=== PATIENT | male | born 1960 | race Caucasian/White ===

== ENCOUNTER 2017-11-05 00:41 | Emergency (ER) | payer OTHER ==
[~2017-11-05] VITALS: Ht 185.4 cm; Wt 97.5 kg
[~2017-11-05 00:41] MED LIST: AMIT10 PO; BACL20 PO; CARV6.25 PO; CEPH500 PO; CIPR500 PO; CLIN300 PO; CYCL10 PO; DIAZ5 PO; DOCU100 PO; FLUO10 PO; FURO20 PO; GABA400 PO; HYDACE5 PO; IBUP600 PO; KETO10 PO; LACT10SY PO; LISI5 PO; LOVA20 PO; MORP15ER PO; OXYACE5T PO; OXYC10TA19 PO; POLY17UD PO; PRAV20 PO; TRAACE PO; TRAM50 PO; WARF6 PO; ZOLP5 PO
[2017-11-05] MEDS ORDERED: TIZANIDINE HCL2 MG PO (00:59)
[2017-11-05] MEDS ORDERED: VISINE ADVANCED15 ML BOTHEYES (00:59)
[2017-11-05] MEDS ORDERED: Aspir 8181 MG PO (01:00)
[2017-11-05] MEDS ORDERED: GAVILAX17 G1 PO (01:01)
[2017-11-05] MEDS ORDERED: LACT10SY PO (01:01)
[2017-11-05] MEDS ORDERED: Florastor250 MG PO (01:01)
[2017-11-05] MEDS ORDERED: POTCHL20ER PO (01:02)
[2017-11-05] MEDS ORDERED: BACL20 PO (01:03)
[2017-11-05] MEDS ORDERED: HYDMOR4 PO (01:03)
[2017-11-05] MEDS ORDERED: POTCHL10ER PO (01:05)
[2017-11-05] MEDS ORDERED: PREG25 PO (01:06)
[2017-11-05] MEDS ORDERED: MORP30 PO (01:06)
[2017-11-05] MEDS ORDERED: ITCHY EYE5 ML BOTHEYES (01:06)
[2017-11-05] MEDS ORDERED: TORSE20 PO (01:07)
[2017-11-05] MEDS ORDERED: ACET325 PO (01:08)
[2017-11-05] MEDS ORDERED: MAALOX ADVANCE1 EACH PO (01:09)
[2017-11-05] MEDS ORDERED: Mucinex600 MG PO (01:09)
[2017-11-05] MEDS ORDERED: LOPE2C PO (01:09)
[2017-11-05] MEDS ORDERED: OXYB5 PO (01:10)
[2017-11-05] MEDS ORDERED: PROM25 PO (01:10)
[2017-11-05] MEDS ORDERED: Zofran8 MG PO (01:10)
[2017-11-05] MEDS ORDERED: PROC25S PR (01:10)
[2018-02-11] MEDS ORDERED: Augmentin 875-1 EACH PO (21:53)
[2018-02-11] MEDS ORDERED: Oxcarbazepine600 MG PO (21:58)
[2018-02-11] MEDS ORDERED: PANT40 PO (22:00)
[2018-02-11] MEDS ORDERED: PREG150 PO (23:51)
[2018-02-11] MEDS ORDERED: POTCHL10ER PO (23:55)
[2018-02-12] MEDS ORDERED: BISA10S PR (00:02)
[2018-02-12] MEDS ORDERED: CLON.1 PO (00:04)
[2018-02-12] MEDS ORDERED: Enema133 M1 PR (00:05)
[2018-02-12] MEDS ORDERED: HYDHCL25 PO (00:06)
[2018-02-12] MEDS ORDERED: [UNRECOGNIZED DRUG - OTHER] PO (00:08)
[2018-02-12] MEDS ORDERED: Milk Of Ma400 MG/5 M PO (00:13)
[2018-02-12] MEDS ORDERED: Eye Allergy Rel15 ML BOTHEYES (00:17)
[2018-02-12] MEDS ORDERED: NYSTRIT TOP (00:19)
[2018-02-12] MEDS ORDERED: SALONPAS PATCH1 EACH TOP (00:22)
[2018-02-12] MEDS ORDERED: VITAMIN A & D OI5 GM EXT (00:28)
[2018-02-17] MEDS ORDERED: Unasyn 3 gm3 GM IV (11:56)
[2018-02-17] MEDS ORDERED: JUVEN PACKET1 EACH PO (11:56)
[2018-02-18] MEDS ORDERED: FENTANYL1 EAC1 TOP (10:14)
[2018-05-08] MEDS ORDERED: LEVO750 PO (10:13)
[2018-05-08] MEDS ORDERED: LIDOCAINE PAIN1 EACH TOP (10:53)
[2018-05-08] MEDS ORDERED: NYSTATIN TOP (10:58)
[2018-05-08] MEDS ORDERED: Percocet 7.5-31 EACH PO (10:59)
[2018-05-08] MEDS ORDERED: GAVILAX17 GM PO (10:59)
[2018-05-08] MEDS ORDERED: SACC250C PO (11:00)
[2018-05-08] MEDS ORDERED: QUETIAPINE FUMA50 MG PO (11:00)
== END 2017-11-05 02:20 | disposition home or self-care (01) ==
LOC: ER 00:41
DX: M54.5 Low back pain (principal); G89.29 Other chronic pain; F41.9 Anxiety disorder, unspecified; Z88.8 Allergy status to other drugs, medicaments and biological substances; Z88.5 Allergy status to narcotic agent; Z79.899 Other long term (current) drug therapy; Z79.82 Long term (current) use of aspirin; Z87.891 Personal history of nicotine dependence
CPT/HCPCS: 99283

== ENCOUNTER → 2017-12-20 | Outpatient (CLI) | payer OTHER ==
[~2017-12-20] MED LIST changes: +ACET325 PO; +Aspir 8181 MG PO; +Augmentin 875-1 EACH PO; +BISA10S PR; +CLON.1 PO; +Enema133 M1 PR; +Eye Allergy Rel15 ML BOTHEYES; +FENTANYL1 EAC1 TOP; +Florastor250 MG PO; +GAVILAX17 G1 PO; +GAVILAX17 GM PO; +HYDHCL25 PO; +HYDMOR4 PO; +ITCHY EYE5 ML BOTHEYES; +JUVEN PACKET1 EACH PO; +LEVO750 PO; +LIDOCAINE PAIN1 EACH TOP; +LOPE2C PO; +MAALOX ADVANCE1 EACH PO; +MORP30 PO; +Milk Of Ma400 MG/5 M PO; +Mucinex600 MG PO; +NYSTATIN TOP; +NYSTRIT TOP; +OXYB5 PO; +Oxcarbazepine600 MG PO; +PANT40 PO; +POTCHL10ER PO; +POTCHL20ER PO; +PREG150 PO; +PREG25 PO; +PROC25S PR; +PROM25 PO; +Percocet 7.5-31 EACH PO; +QUETIAPINE FUMA50 MG PO; +SACC250C PO; +SALONPAS PATCH1 EACH TOP; +TIZANIDINE HCL2 MG PO; +TORSE20 PO; +Unasyn 3 gm3 GM IV; +VISINE ADVANCED15 ML BOTHEYES; +VITAMIN A & D OI5 GM EXT; +Zofran8 MG PO; +[UNRECOGNIZED DRUG - OTHER] PO
[2017-12-20 16:42] LABS: Source, Urine Voided
[2017-12-20 19:15] LABS: Bilirubin, Urine Neg (Neg); Blood, Urine 5+ (Neg); Glucose Qualitative, Urine Neg (Neg); Ketones, Urine Neg (Neg); Leukocyte Esterase, Urine 3+ (Neg); Nitrite, Urine Neg (Neg); Protein, Urine 2+ (Neg); Specific Gravity, Urine 1.015 (1.003-1.022); Urobilinogen, Urine NORM (Normal)
[2017-12-20 19:21] LABS: Appearance, Urine Hazy (Clear); Color, Urine Pale Yellow (P-Yellow)
[2017-12-20 19:22] LABS: White Blood Cells, Urine TNTC /hpf (0-5)
[2017-12-20 19:23] LABS: Red Blood Cells, Urine 25-50 /hpf (0-2); Squamous Epithelial Cells Few /hpf (Few)
[2017-12-20 19:25] LABS: Bacteria Few /hpf
== END ==
LOC: LAB UCHC 16:37
PROVIDERS: Family Medicine
DX: G82.21 Paraplegia, complete (principal); L89.313 Pressure ulcer of right buttock, stage 3; M54.5 Low back pain; I11.0 Hypertensive heart disease with heart failure; I50.9 Heart failure, unspecified
CPT/HCPCS: 81001; 87086

== ENCOUNTER → 2017-12-31 | Outpatient (CLI) | payer OTHER | LOC: LAB HH 11:45 | DX: L89.313 Pressure ulcer of right buttock, stage 3 (principal); Z93.3 Colostomy status | CPT/HCPCS: 87070; 87075; 87077; 87147; 87186; 87205 ==

== ENCOUNTER 2018-01-20 00:03 | Day surgery (SDC) | payer OTHER ==
[~2018-01-20 00:03] MED LIST changes: -Augmentin 875-1 EACH PO; -BISA10S PR; -CLON.1 PO; -Enema133 M1 PR; -Eye Allergy Rel15 ML BOTHEYES; -FENTANYL1 EAC1 TOP; -GAVILAX17 GM PO; -HYDHCL25 PO; -ITCHY EYE5 ML BOTHEYES; +ITCHY EYE5 ML OP; -JUVEN PACKET1 EACH PO; +LACT10SY; -LEVO750 PO; -LIDOCAINE PAIN1 EACH TOP; +Lyrica225 MG PO; -Milk Of Ma400 MG/5 M PO; +Mucinex600 MG; -Mucinex600 MG PO; -NYSTATIN TOP; -NYSTRIT TOP; -Oxcarbazepine600 MG PO; -PANT40 PO; +POTCHL10ER; -POTCHL10ER PO; -PREG150 PO; -PREG25 PO; +PROM25; -PROM25 PO; -Percocet 7.5-31 EACH PO; -QUETIAPINE FUMA50 MG PO; -SACC250C PO; -SALONPAS PATCH1 EACH TOP; -Unasyn 3 gm3 GM IV; +VISINE ADVANCED15 ML; -VISINE ADVANCED15 ML BOTHEYES; -VITAMIN A & D OI5 GM EXT; -[UNRECOGNIZED DRUG - OTHER] PO
== END 2018-01-20 22:50 | disposition home or self-care (01) ==
LOC: WOUND 00:03
DX: Z48.00 Encounter for change or removal of nonsurgical wound dressing (principal); Z53.21 Procedure and treatment not carried out due to patient leaving prior to being seen by health care provider
CPT/HCPCS: G0463

== ENCOUNTER 2018-02-10 10:15 | Day surgery (SDC) | payer OTHER ==
[~2018-02-10 10:15] MED LIST changes: +ITCHY EYE5 ML BOTHEYES; -ITCHY EYE5 ML OP; -LACT10SY; -Lyrica225 MG PO; -Mucinex600 MG; +Mucinex600 MG PO; -POTCHL10ER; +POTCHL10ER PO; +PREG25 PO; -PROM25; +PROM25 PO; -VISINE ADVANCED15 ML; +VISINE ADVANCED15 ML BOTHEYES
[2018-02-11] MEDS ORDERED: Augmentin 875-1 EACH PO (21:53)
[2018-02-11] MEDS ORDERED: Oxcarbazepine600 MG PO (21:58)
[2018-02-11] MEDS ORDERED: PANT40 PO (22:00)
[2018-02-11] MEDS ORDERED: PREG150 PO (23:51)
[2018-02-11] MEDS ORDERED: POTCHL10ER PO (23:55)
[2018-02-12] MEDS ORDERED: BISA10S PR (00:02)
[2018-02-12] MEDS ORDERED: CLON.1 PO (00:04)
[2018-02-12] MEDS ORDERED: Enema133 M1 PR (00:05)
[2018-02-12] MEDS ORDERED: HYDHCL25 PO (00:06)
[2018-02-12] MEDS ORDERED: [UNRECOGNIZED DRUG - OTHER] PO (00:08)
[2018-02-12] MEDS ORDERED: Milk Of Ma400 MG/5 M PO (00:13)
[2018-02-12] MEDS ORDERED: Eye Allergy Rel15 ML BOTHEYES (00:17)
[2018-02-12] MEDS ORDERED: NYSTRIT TOP (00:19)
[2018-02-12] MEDS ORDERED: SALONPAS PATCH1 EACH TOP (00:22)
[2018-02-12] MEDS ORDERED: VITAMIN A & D OI5 GM EXT (00:28)
[2018-02-17] MEDS ORDERED: Unasyn 3 gm3 GM IV (11:56)
[2018-02-17] MEDS ORDERED: JUVEN PACKET1 EACH PO (11:56)
[2018-02-18] MEDS ORDERED: FENTANYL1 EAC1 TOP (10:14)
== END 2018-02-10 22:45 | disposition home or self-care (01) ==
LOC: WOUND 10:15
DX: Z48.00 Encounter for change or removal of nonsurgical wound dressing (principal); L89.314 Pressure ulcer of right buttock, stage 4; G82.20 Paraplegia, unspecified; F17.200 Nicotine dependence, unspecified, uncomplicated
CPT/HCPCS: G0463